=== PATIENT | female | born 1995 | race American Indian/Alaskan Native ===

== ENCOUNTER 2019-07-17 12:15 | Emergency (ER) | payer OTHER ==
[2019-07-17 12:23] VITALS: BP 131/81
--- NOTE | 2019-07-17 12:24 | Event Note ---
ED Screening Note Date of service: 07/17/19 Time: 12:21 ED Screening Note: This is a 23 y.o. F. that presents to the ER with left ankle pain s/p fall last night. LMP 1 year ago, implant control Reports pain and swelling left malleolus This initial assessment/diagnostic orders/clinical plan/treatment(s) is/are subject to change based on patients health status, clinical progression and re- assessment by fellow clinical providers in the ED. Further treatment and workup at subsequent clinical providers discretion. Patient/guardian urged not to elope from the ED as their condition may be serious if not clinically assessed and managed. Initial orders include: XR left ankle
--- NOTE | 2019-07-17 13:14 | XRay Report ---
Left ankle-3 views INDICATION: pain and swelling lateral malleolus. COMPARISON: None. IMPRESSION: Mild generalized swelling about the ankle with preserved ankle mortise and no acute frac ture identified. No significant DJD. Signer Name: Hilton Lopez MD Signed: 07/17/2019 1:10 PM Workstation Name: [id number]
[2019-07-17] MEDS ORDERED: traMADol 50 MG TAB PO ONE (14:02)
--- NOTE | 2019-07-17 14:06 | Emergency Department Report ---
ED General Adult HPI - General Chief complaint: Extremity Injury, Lower Stated complaint: LFT ANKLE POSS BROKEN/PAIN Time Seen by Provider: 07/17/19 12:21 Source: patient Mode of arrival: Wheelchair Limitations: Physical Limitation - History of Present Illness Initial comments: Patient presents to the emergency department the chief complaint left ankle pain that started last night. Patient states she was walking down the steps and tripped bus twisting her left ankle. Patient denies hitting her head or lost consciousness. Patient denies hearing a pop sensation is not been able to bear weight on the ankle since the incident. -: Sudden Location: lower extremity Radiation: non-radiation Severity scale (0 -10): 6 Quality: aching Consistency: constant Improves with: rest Worsens with: movement Associated Symptoms: denies other symptoms Treatments Prior to Arrival: none - Related Data Previous Rx's Medication Instructions Recorded Last Taken Type Naproxen [Naprosyn] 500 mg PO BID PRN #20 tablet 07/17/19 Unknown Rx traMADol [Ultram] 50 mg PO Q6HR PRN #15 tablet 07/17/19 Unknown Rx Allergies Allergy/AdvReac Type Severity Reaction Status Date / Time No Known Allergies Allergy Unverified 07/17/19 12:19 ED Review of Systems ROS: Stated complaint: LFT ANKLE POSS BROKEN/PAIN Other details as noted in HPI Comment: All other systems reviewed and negative Constitutional: denies: chills, fever Eyes: denies: eye pain, eye discharge, vision change ENT: denies: ear pain, throat pain Respiratory: denies: cough, shortness of breath, wheezing Cardiovascular: denies: chest pain, palpitations Endocrine: no symptoms reported Gastrointestinal: denies: abdominal pain, nausea, diarrhea Genitourinary: denies: urgency, dysuria, discharge Musculoskeletal: denies: back pain, joint swelling, arthralgia Skin: denies: rash, lesions Neurological: denies: headache, weakness, paresthesias Psychiatric: denies: anxiety, depression Hematological/Lymphatic: denies: easy bleeding, easy bruising ED Past Medical Hx - Past Medical History Previous Medical History?: No - Surgical History Past Surgical History?: Yes Additional Surgical History: - Social History Smoking Status: Never Smoker Substance Use Type: None - Medications Home Medications: Home Medications Medication Instructions Recorded Confirmed Last Taken Type Naproxen [Naprosyn] 500 mg PO BID PRN #20 tablet 07/17/19 Unknown Rx traMADol [Ultram] 50 mg PO Q6HR PRN #15 tablet 07/17/19 Unknown Rx ED Physical Exam - General Limitations: Physical Limitation General appearance: alert, in no apparent distress - Head Head exam: Present: atraumatic, normocephalic - Eye Eye exam: Present: normal appearance - ENT ENT exam: Present: mucous membranes moist - Neck Neck exam: Present: normal inspection - Respiratory Respiratory exam: Present: normal lung sounds bilaterally. Absent: respiratory distress - Cardiovascular Cardiovascular Exam: Present: regular rate, normal rhythm. Absent: systolic murmur, diastolic murmur, rubs, gallop - Extremities Exam Extremities exam: Present: tenderness (to palpation of the lateral malleolus) - Back Exam Back exam: Present: normal inspection - Neurological Exam Neurological exam: Present: alert, oriented X3, CN II-XII intact. Absent: motor sensory deficit - Psychiatric Psychiatric exam: Present: normal affect, normal mood - Skin Skin exam: Present: warm, dry, intact, normal color. Absent: rash ED Course Vital Signs 07/17/19 12:21 Temperature 98.8 F Pulse Rate 93 H Respiratory 18 Rate Blood Pressure 131/81 O2 Sat by Pulse 99 Oximetry ED Medical Decision Making - Radiology Data Radiology results: report reviewed - Medical Decision Making Discussed results with patient Critical care attestation.: If time is entered above; I have spent that time in minutes in the direct care of this critically ill patient, excluding procedure time. ED Disposition Clinical Impression: Left ankle sprain Disposition: TO HOME OR SELFCARE Is pt being admited?: No Does the pt Need Aspirin: No Condition: Stable Instructions: Ankle Sprain (ED) Additional Instructions: return if worse Referrals: [facility] [Provider Group] - 3-5 Days [facility] [Provider Group] - 3-5 Days Time of Disposition: 14:05
== END 2019-07-17 14:28 | disposition home or self-care (01) ==
LOC: ED 12:15
DX: S93.402A Sprain of unspecified ligament of left ankle, initial encounter (principal); X50.1XXA Overexertion from prolonged static or awkward postures, initial encounter; Y93.89 Activity, other specified; Y92.89 Other specified places as the place of occurrence of the external cause; Y99.8 Other external cause status

== ENCOUNTER 2019-08-24 20:34 | Emergency (ER) | payer OTHER ==
[2019-08-24 20:50] VITALS: BP 125/83
--- NOTE | 2019-08-24 21:59 | Emergency Department Report ---
ED ENT HPI - General Chief complaint: Earache Stated complaint: EAR PAIN Time Seen by Provider: 08/24/19 21:54 Source: patient Mode of arrival: Ambulatory Limitations: No Limitations - History of Present Illness Initial comments: This is a 23-year-old female nontoxic well in appearance with no signs of distress presents to the ED with complaint of right earache. Patient denies any hearing loss. Denies any mastoid tenderness. Agrees for drainage. Denies any fever, chills, headache, nausea, vomiting, chest pain or SOB. Denies any other complaints. Denies any allergies. MD complaint: ear pain -: days(s) Location: R ear Severity: mild Severity scale (0 -10): 8 Quality: aching Consistency: constant Improves with: none Worsens with: none Associated Symptoms: discharge from ear. denies: fever, cough, toothache, pain with swallowing, sore throat, tinnitus, hearing loss, rhinorrhea - Related Data Previous Rx's Medication Instructions Recorded Last Taken Type Naproxen [Naprosyn] 500 mg PO BID PRN #20 tablet 07/17/19 Unknown Rx traMADol [Ultram] 50 mg PO Q6HR PRN #15 tablet 07/17/19 Unknown Rx Amoxicillin [Amoxicillin TAB] 875 mg PO BID #20 tablet 08/24/19 Unknown Rx Ciprofloxacin 0.2%(Nf) 3 drops AD TID 7 Days #1 droperette 08/24/19 Unknown Rx [Ciprofloxacin Otic 0.2%(Nf)] Allergies Allergy/AdvReac Type Severity Reaction Status Date / Time No Known Allergies Allergy Unverified 07/17/19 12:19 ED Dental HPI - General Chief complaint: Earache Stated complaint: EAR PAIN Time Seen by Provider: 08/24/19 21:54 Source: patient Mode of arrival: Ambulatory Limitations: No Limitations - Related Data Previous Rx's Medication Instructions Recorded Last Taken Type Naproxen [Naprosyn] 500 mg PO BID PRN #20 tablet 07/17/19 Unknown Rx traMADol [Ultram] 50 mg PO Q6HR PRN #15 tablet 07/17/19 Unknown Rx Amoxicillin [Amoxicillin TAB] 875 mg PO BID #20 tablet 08/24/19 Unknown Rx Ciprofloxacin 0.2%(Nf) 3 drops AD TID 7 Days #1 droperette 08/24/19 Unknown Rx [Ciprofloxacin Otic 0.2%(Nf)] Allergies Allergy/AdvReac Type Severity Reaction Status Date / Time No Known Allergies Allergy Unverified 07/17/19 12:19 ED Review of Systems ROS: Stated complaint: EAR PAIN Other details as noted in HPI Constitutional: denies: chills, fever Eyes: denies: eye pain, eye discharge, vision change ENT: ear pain. denies: throat pain Respiratory: denies: cough, shortness of breath, wheezing Cardiovascular: denies: chest pain, palpitations Endocrine: no symptoms reported Gastrointestinal: denies: abdominal pain, nausea, diarrhea Genitourinary: denies: urgency, dysuria, discharge Musculoskeletal: denies: back pain, joint swelling, arthralgia Skin: denies: rash, lesions Neurological: denies: headache, weakness, paresthesias Psychiatric: denies: anxiety, depression Hematological/Lymphatic: denies: easy bleeding, easy bruising ED Past Medical Hx - Surgical History Additional Surgical History: - Social History Smoking Status: Never Smoker Substance Use Type: None - Medications Home Medications: Home Medications Medication Instructions Recorded Confirmed Last Taken Type Naproxen [Naprosyn] 500 mg PO BID PRN #20 tablet 07/17/19 Unknown Rx traMADol [Ultram] 50 mg PO Q6HR PRN #15 tablet 07/17/19 Unknown Rx Amoxicillin [Amoxicillin TAB] 875 mg PO BID #20 tablet 08/24/19 Unknown Rx Ciprofloxacin 0.2%(Nf) 3 drops AD TID 7 Days #1 droperette 08/24/19 Unknown Rx [Ciprofloxacin Otic 0.2%(Nf)] ED Physical Exam - General Limitations: No Limitations General appearance: alert, in no apparent distress - Head Head exam: Present: atraumatic, normocephalic - Expanded ENT Exam Expanded Ear exam: Present: normal external inspection TM/Canal exam: Erythema: Right TM, Bulging: Right TM, Canal Discharge: Right TM - Neck Neck exam: Present: normal inspection, full ROM. Absent: tenderness, meningismus, lymphadenopathy - Other Other exam information: positive tragus tenderness. ED Course Vital Signs 08/24/19 20:48 Temperature 97.9 F Pulse Rate 98 H Respiratory 18 Rate Blood Pressure 125/83 O2 Sat by Pulse 99 Oximetry - Reevaluation(s) Reevaluation #1: 08/24/19 21:58 Patient is speaking in full sentences with no signs of distress noted. ED Medical Decision Making - Medical Decision Making Patient was instructed to Follow-up with a primary care doctor in 3-5 days or if symptoms worsen and continue return to emergency room as soon as possible. At time of discharge, the patient does not seem toxic or ill in appearance. No acute signs of distress noted. Patient agrees to discharge treatment plan of care. No further questions noted by the patient. Critical care attestation.: If time is entered above; I have spent that time in minutes in the direct care of this critically ill patient, excluding procedure time. ED Disposition Clinical Impression: Right otitis media Qualifiers: Otitis media type: unspecified Qualified Code(s): H66.91 - Otitis media, unspecified, right ear Right otitis externa Qualifiers: Otitis externa type: unspecified type Chronicity: acute Qualified Code(s): H60.501 - Unspecified acute noninfective otitis externa, right ear Disposition: - TO HOME OR SELFCARE Is pt being admited?: No Does the pt Need Aspirin: No Condition: Stable Instructions: Otitis Media (ED), Otitis Externa (ED) Additional Instructions: Follow-up with a primary care doctor in 3-5 days or if symptoms worsen and continue return to emergency room as soon as possible. Prescriptions: Amoxicillin [Amoxicillin TAB] 875 mg PO BID #20 tablet Ciprofloxacin 0.2%(Nf) [Ciprofloxacin Otic 0.2%(Nf)] 3 drops AD TID 7 Days #1 droperette Referrals: PRIMARY CAREMD [Referring] - 3-5 Days VI CARTER MD [Staff Physician] - 3-5 Days [facility] [Outside] - 3-5 Days [facility] [Outside] - 3-5 Days Forms: Work/School Release Form(ED)
== END 2019-08-24 22:22 | disposition home or self-care (01) ==
LOC: ED 20:34
DX: H66.91 Otitis media, unspecified, right ear (principal); H60.501 Unspecified acute noninfective otitis externa, right ear; Z79.899 Other long term (current) drug therapy
CPT/HCPCS: 99282